=== PATIENT | male | born 1990 | race Caucasian/White ===

== ENCOUNTER 2017-07-16 22:24 | Emergency (ER) | payer SELFPAY ==
[2017-07-16 23:23] LABS: ABSOLUTE BASOPHILS # (AUTO) 0.1 10^3/uL (0.0-0.2); ABSOLUTE EOSINOPHILS # (AUTO) 0.2 10^3/uL (0.0-0.6); ABSOLUTE LYMPHOCYTES (AUTO) 3.2 10^3/uL (0.5-4.7); ABSOLUTE MONOCYTES (AUTO) 0.8 10^3/uL (0.1-1.4); ABSOLUTE NEUT (AUTO) 5.1 10^3/uL (1.7-8.2); BASOPHILS % (AUTO) 0.7 % (0-2); EOSINOPHILS % (AUTO) 1.7 % (0-6); HEMATOCRIT 47.8 % (37.9-51.0); HEMOGLOBIN 16.2 g/dL (13.5-17.0); LYMPHOCYTES % (AUTO) 34.6 % (13-45); MEAN CORPUSCULAR HEMOGLOBIN 30.6 pg (27.0-33.4); MEAN CORPUSCULAR VOLUME 90 fl (80-97); MONOCYTES % (AUTO) 8.2 % (3-13); PLATELET COUNT 236 10^3/uL (150-450); RED BLOOD COUNT 5.31 10^6/uL (4.35-5.55); SEGMENTED NEUTROPHILS % (AUTO) 54.8 % (42-78); TOTAL CELLS COUNTED % (AUTO) 100 %; WHITE BLOOD COUNT 9.3 10^3/uL (4.0-10.5)
--- NOTE | 2017-07-16 23:34 | ER Document Report ---
ED Psych Disorder / Suicide - General Mode of Arrival: Ambulatory Information source: Patient TRAVEL OUTSIDE OF THE [place] IN LAST 30 DAYS: No <DAMARIS LOUIS - Last Filed: 07/17/17 01:25> <LION CARMONA - Last Filed: 07/17/17 02:39> - General Chief Complaint: Psych Problem Stated Complaint: ALTERED MENTAL STATUS Time Seen by Provider: 07/16/17 23:02 Notes: Patient is a 27-year-old male who presents to the emergency department today with complaints of "my head feeling like it is going to explode". Patient states he has had this headache for several years. Patient states he called the hospital to get help for his anxiety and his headache and he was told to "meet someone here". Patient was driven by a friend. Both the patient and the friend deny any suicidal ideation. Patient states he is followed by a therapist who he has an appointment with on in [place], [place] but he cannot remember his name. Patient states "since the Trump administration my therapist and psychiatrist were fired and I have no health insurance". Patient is homeless. Patient denies wanting any treatment for his headache, anxiety, or a pediatric social worker stating he has one already. (DAMARIS LOUIS ) - Related Data Allergies/Adverse Reactions: No Known Allergies Allergy (Verified 03/07/17 13:40) Past Medical History - General Information source: Patient - Social History Smoking Status: Never Smoker Cigarette use (# per day): No Frequency of alcohol use: None Drug Abuse: None Lives with: Family Family History: Reviewed & Not Pertinent Neurological Medical History: Reports: Hx Migraine, Hx Seizures Psychiatric Medical History: Reports: Hx Depression Past Surgical History: Reports: Hx Orthopedic Surgery <DAMARIS LOUIS - Last Filed: 07/17/17 01:25> Review of Systems - Review of Systems Constitutional: No symptoms reported EENT: No symptoms reported Cardiovascular: No symptoms reported Respiratory: No symptoms reported Gastrointestinal: No symptoms reported Genitourinary: No symptoms reported Male Genitourinary: No symptoms reported Musculoskeletal: No symptoms reported Skin: No symptoms reported Hematologic/Lymphatic: No symptoms reported Neurological/Psychological: See HPI, Headaches. denies: Suicidal ideation -: Yes All other systems reviewed and negative <DAMARIS LOUIS - Last Filed: 07/17/17 01:25> Physical Exam - Vital signs Interpretation: Normal - General General appearance: Appears well, Alert - HEENT Head: Normocephalic, Atraumatic Eyes: Normal Pupils: PERRL - Respiratory Respiratory status: No respiratory distress Chest status: Nontender Breath sounds: Normal Chest palpation: Normal - Cardiovascular Rhythm: Regular Heart sounds: Normal auscultation Murmur: No - Abdominal Inspection: Normal Distension: No distension Bowel sounds: Normal Tenderness: Nontender Organomegaly: No organomegaly - Back Back: Normal, Nontender - Extremities General upper extremity: Normal inspection, Nontender, Normal color, Normal ROM , Normal temperature General lower extremity: Normal inspection, Nontender, Normal color, Normal ROM , Normal temperature, Normal weight bearing. No: Inés's sign - Neurological Neuro grossly intact: Yes Cognition: Normal Orientation: AAOx4 [place] Coma Scale Eye Opening: Spontaneous [place] Coma Scale Verbal: Oriented [place] Coma Scale Motor: Obeys Commands Chidi Coma Scale Total: 15 Speech: Normal Motor strength normal: LUE, RUE, LLE, RLE Sensory: Normal - Psychological Associated symptoms: Normal affect, Anxious, Restlessness - Skin Skin Temperature: Warm Skin Moisture: Dry Skin Color: Normal <LION CARMONA - Last Filed: 07/17/17 02:39> - Vital signs Vitals: Temp Pulse Resp BP Pulse Ox 98.6 F 72 20 116/75 97 07/16/17 22:37 07/16/17 22:37 07/16/17 22:37 07/16/17 22:37 07/16/17 22:37 Course - Laboratory Result Diagrams: 07/16/17 22:50 07/16/17 22:50 <DAMARIS LOUIS - Last Filed: 07/17/17 01:25> - Laboratory Result Diagrams: 07/16/17 22:50 07/16/17 22:50 <LION CARMONA - Last Filed: 07/17/17 02:39> - Re-evaluation Re-evalutation: Patient with no suicidal or homicidal ideation. No from janitorial maintenance worker and she has states that the patient was suicidal with plan to overdose. Patient and friend adamantly deny this. Patient states that he has had suicidal ideation in the past but not currently. He is not homicidal or hallucinating. He has no plan to hurt himself. States he is very anxious and he would prefer to leave. He has an appointment with his mental health provider on . His friend states that this is true and patient has not been suicidal this evening. (LION CARMONA) - Vital Signs Vital signs: Temp Pulse Resp BP Pulse Ox 98.1 F 77 18 126/77 H 99 07/16/17 23:45 07/16/17 23:45 07/16/17 23:45 07/16/17 23:45 07/16/17 23:45 - Laboratory Laboratory results interpreted by me: 07/16/17 22:50 Calcium 10.3 H Albumin 5.2 H Salicylates < 1.0 L Acetaminophen < 10 L Discharge <DAMARIS LOUIS - Last Filed: 07/17/17 01:25> <LION CARMONA - Last Filed: 07/17/17 02:39> - Discharge Clinical Impression: Anxiety Condition: Stable Disposition: HOME, SELF-CARE Instructions: Anxiety ([facility]) Additional Instructions: Please follow-up with your counselor this week as scheduled. Please return if you have any further concerns. Scribe Attestation: 07/17/17 02:39 I personally performed the services described in the documentation, reviewed and edited the documentation which was dictated to the scribe in my presence, and it accurately records my words and actions. (LION CARMONA) Scribe Documentation - Scribe Written by Aleja:: Aleja Herrera, 07/17/2017 [id number] acting as scribe for :: Paola <DAMARIS LOUIS - Last Filed: 07/17/17 01:25>
[2017-07-16 23:44] LABS: ACETAMINOPHEN < 10 ug/mL (10-30); ALANINE AMINOTRANSFERASE 67 U/L (21-72); ALBUMIN 5.2 g/dL (3.5-5.0); ALCOHOL < 10 mg/dL (NONE DETECTED); ALKALINE PHOSPHATASE 64 U/L (38-126); ANION GAP 14 (5-19); ASPARTATE AMINO TRANSFERASE 38 U/L (17-59); BILIRUBIN,DIRECT 0.3 mg/dL (0.0-0.4); BILIRUBIN,TOTAL 0.6 mg/dL (0.2-1.3); BLOOD UREA NITROGEN 13 mg/dL (7-20); CALCIUM 10.3 mg/dL (8.4-10.2); CARBON DIOXIDE 26 mmol/L (22-30); CHLORIDE 104 mmol/L (98-107); GLUCOSE 89 mg/dL (75-110); POTASSIUM 4.6 mmol/L (3.6-5.0); SALICYLATE < 1.0 mg/dL (2.0-20.0); SODIUM 143.7 mmol/L (137-145); TOTAL PROTEIN 8.1 g/dL (6.3-8.2)
[2017-07-16 23:47] VITALS: BP 126/77
--- NOTE | 2017-07-17 18:41 | EKG REPORT ---
SEVERITY:- ABNORMAL ECG - SINUS TACHYCARDIA ARYAN, CONSIDER BIATRIAL ABNORMALITIES CONSIDER RIGHT VENTRICULAR HYPERTROPHY INFERIOR Q WAVES, PROBABLY NORMAL VARIATION BORDERLINE ST DEPRESSION, LATERAL LEADS : Confirmed by: Mayur Storey MD 17-Jul-2017 18:40:39
== END 2017-07-16 23:53 | disposition home or self-care (01) ==
LOC: ER 22:24
DX: F41.9 Anxiety disorder, unspecified (principal); R41.82 Altered mental status, unspecified; Z59.0 Homelessness
CPT/HCPCS: 36415; 80053; 80307; 85025; 93005; 93010; 99284